=== PATIENT | male | born 1965 | race Caucasian/White ===

== ENCOUNTER 2017-08-12 22:34 | Emergency (ER) | payer OTHER ==
[~2017-08-12] VITALS: Ht 182.9 cm; Wt 105.3 kg
[2017-08-13] MEDS ORDERED: NORCO 10/3251 TABLET PO (00:30)
[2017-08-13] MEDS ORDERED: MOTRIN800 MG PO (00:30)
[2017-08-13 01:01] VITALS: BP 141/105
== END 2017-08-13 01:03 | disposition home or self-care (01) ==
LOC: EME 22:34
DX: S05.02XA Injury of conjunctiva and corneal abrasion without foreign body, left eye, initial encounter (principal); W22.8XXA Striking against or struck by other objects, initial encounter; Y99.0 Civilian activity done for income or pay
CPT/HCPCS: 99281; 99284